=== PATIENT | female | born 1945 | race Caucasian/White ===

== ENCOUNTER 2017-11-25 19:53 | Emergency (ER) | payer OTHER ==
[~2017-11-25] VITALS: Ht 165.1 cm; Wt 104.3 kg
--- NOTE | ~2017-11-25 | EKG ---
[place] [address] [place] [address] ELECTROCARDIOGRAM REPORT Name: KINDRA OMALLEY [id number] Admission: 11/25/17 Attend Phys: Discharge: 11/25/17 Date of : 47 Report #: [id number] THIS REPORT FOR: //name// [facility] ED Test Date: 2017-11-25 Test Time: 20:10:23 Pat Name: KINDRA OMALLEY Department: Room: Gender: F Form Carpenter: [facility] : 1945 Requested By: Joni Acevedo Order Number: [id number] MD: Satish Farooq Measurements Intervals [place] Rate: 79 P: 35 FL: 128 QRS: 56 QRSD: 108 T: 7 QT: 389 QTc: 447 Interpretive Statements Sinus rhythm RSR' in V1 or V2, right VCD Compared to ECG 09/21/2000 16:31:51 RSR' in V1 or V2 now present Electronically Signed On 11-26-2017 14:58:01 CDT by Satish Farooq [email or web address] <ELECTRONICALLY SIGNED> By: Satish Farooq MD, [facility] 11/26/17 1458 09 09 Satish Farooq MD, FACC /EPI
[~2017-11-25 19:53] MED LIST: AMARYL4 MG PO; CLARITIN10 MG PO; EXCEDRIN CAPLE1 EACH PO; FLAGYL500 MG PO; HYDROCHLOROTH12.5 M2 PO; IBUPROFEN 200200 M1 PO; LOPID600 MG PO; LORAZEPAM 1 MG T1 M1 PO; PANTOPRAZOLE SO40 MG PO; PEPCID40 MG PO; POTASSIUM20 PO; PREDNISONE 20 M20 MG PO; SERTRALINE HCL100 MG PO; VISTARIL 25 MG25 M1 PO; ZESTORETIC 20-1 EAC3; ZOFRAN ODT8 MG SUBLING
[2017-11-25 20:56] LABS: ABSOLUTE NEUTROPHILS 5.6 thou/uL (1.4-8.2); BASOPHILS 1.1 % (0.0-2.0); EOSINOPHILS 2.9 % (0.0-3.0); HEMATOCRIT 39.4 % (37.0-47.0); HEMOGLOBIN 13.2 gm/dL (12.0-15.0); LYMPHOCYTES 20.9 % (24.0-44.0); MCHC 33.6 g/dL (28.0-37.0); MCV 80.4 fL (80.0-100.0); MONOCYTES 5.6 % (1.0-8.0); PLATELET COUNT 196 thou/uL (150-400); POLYS 69.5 % (36.0-66.0); RDW 14.4 % (10.5-14.5); WBC 8.1 thou/uL (4.0-11.0)
[2017-11-25] MEDS ORDERED: HUMULIN N100 UNIT/3 SUBQ (20:58)
[2017-11-25 21:05] LABS: CALCIUM 9.7 mg/dL (8.5-10.1); CREATININE 1.2 mg/dL (0.6-1.0); POTASSIUM 3.4 mmol/L (3.5-5.1)
[2017-11-25 22:13] VITALS: BP 164/66
[2017-11-25] MEDS ORDERED: DOXYCYCLINE 10100 MG PO (22:17)
== END 2017-11-25 22:30 | disposition home or self-care (01) ==
LOC: ER 19:53
PROVIDERS: Emergency Medicine
DX: J98.9 Respiratory disorder, unspecified (principal); I10 Essential (primary) hypertension; K21.9 Gastro-esophageal reflux disease without esophagitis; F41.9 Anxiety disorder, unspecified; F32.9 Major depressive disorder, single episode, unspecified; E11.9 Type 2 diabetes mellitus without complications; Z90.710 Acquired absence of both cervix and uterus; Z90.49 Acquired absence of other specified parts of digestive tract; Z88.1 Allergy status to other antibiotic agents; Z88.8 Allergy status to other drugs, medicaments and biological substances; Z87.891 Personal history of nicotine dependence

== ENCOUNTER → 2018-10-29 | Outpatient (CLI) | payer OTHER ==
[~2018-10-29] VITALS: Ht 165.1 cm; Wt 103.0 kg
[~2018-10-29] MED LIST changes: +COMBIVENT INH; +DOXYCYCLINE 10100 MG PO; +HUMULIN N100 UNIT/3 SUBQ; +HYDROCHLOROTH12.5 M1 PO; +TYLENOL PM EX-1 EACH PO
--- NOTE | ~2018-10-29 | P ---
[facility] [place] [address] PROCEDURE REPORT Name: KINDRA OMALLEY Room #: REG [facility]#: [id number] Admission: 10/29/18 ������������������ Attend Phys: Lars Pressley MD Discharge: ������������������ Date of : 47 Report #: [id number] THIS REPORT FOR: //name// CC: Jay Pressley DATE OF SERVICE: 10/29/2018 BRIEF HISTORY: The patient is a 73-year-old woman with history of colon polyps. PREOPERATIVE DIAGNOSIS: History of colon polyps. POSTOPERATIVE DIAGNOSES: 1. Colon polyps. 2. Moderate sigmoid diverticulosis coli. SPECIMENS: 1. A 10-12 mm flat polyp, 70 cm. 2. A 4 mm sessile polyp, rectum. MEDICATIONS: Deep sedation with propofol per Anesthesia. ESTIMATED BLOOD LOSS: 3 mL. PROCEDURE: Colonoscopy to cecum and terminal ileum with snare polypectomy and biopsy. FINDINGS: Prior to propofol sedation, procedure of colonoscopy discussed with the patient as well as potential risks and its complications. She indicates she understands and desires to proceed. DESCRIPTION OF PROCEDURE: The patient placed in left lateral decubitus position, digital examination was completed, which revealed no abnormalities. Subsequently, the Olympus video colonoscope was introduced in the rectum, advanced under direct vision to the cecum. Done with minimal difficulty. The cecum was identified by the ileocecal valve and the appendiceal orifice. I was able to visualize the distal segment of terminal ileum, which was inspected and noted to be unremarkable. At that point, scope was slowly withdrawn and careful circumferential views obtained including retroflexing the scope in the ascending colon. Upon slow withdrawal of the scope, the prep was good. The mucosa was within normal limits, normal vascular pattern, normal light reflex. As we withdrew the scope, no abnormalities were noted until we reached the descending colon. At 70 cm, there was about a 10-12 mm polyp over the edge of the fold. It had a bulky appearance, but was essentially a flat polyp draped over a fold. This was removed by hot snare polypectomy. The scope was further withdrawn and [facility] [address] [place] [address] PROCEDURE REPORT Name: KINDRA OMALLEY Room #: REG SUSHILA Garcia.#: [id number] Admission: 10/29/18 ������������������ Attend Phys: Lars Pressley MD Discharge: ������������������ Date of : 47 Report #: [id number] she was noted to have moderately severe diverticular disease in the sigmoid colon without endoscopic evidence of diverticulitis. No additional abnormalities were noted until the rectum was reached. In the distal rectum, a 4 mm sessile polyp was seen and removed with cold biopsy forceps. Scope was further withdrawn and no additional abnormalities were seen. Upon retroflexion, no abnormalities were seen. Scope was withdrawn. The patient tolerated the procedure well. CONDITION OF THE PATIENT UPON DISCHARGE: Following the procedure, the patient was drowsy, arousable and conversant and will be discharged to home when fully ambulatory. INSTRUCTIONS TO THE PATIENT AND FAMILY AT THE TIME OF DISCHARGE: We will follow up on the pathology. However, due to the relatively large polyp at 70 cm, we will have her return for followup colonoscopy in 3 years. Suggest high fiber diet. Last colonoscopy was more than 5 years ago. Withdrawal time from the cecum was 18 minutes and 3 seconds. ��������������������������������������������� ���������������������������������������� By: ��������������������������������������������� 1004 1241 Lars Pressley MD /nt
--- NOTE | 2018-10-30 17:06 | PATH ---
[facility] [place] [address] [place] [address] PATHOLOGY RPT PROCEDURE Name: KINDRA SCHMITT Room #: REG SUSHILA Garcia.#: [id number] ������������������ Admission: 10/29/18 ������������������ Date of : 47 Discharge: Report #: [id number] Path Case #: [id number] [facility] Accession Number: [id number] . 01 Material submitted: . PART A: POLYP AT 70CM PART B: BX OF POLYP AT RECTUM . 01 Clinical history: . Pre-OP DX: Screening Post-OP DX: Colon polyp, diverticulosis, rectal polyp . 02 Diagnosis: A. Polyp, at 70 cm, endoscopic biopsy: - Hyperplastic polyp. - Negative for dysplasia. . B. Polyp, at rectum, endoscopic biopsy: - Hyperplastic polyp. - Negative for dysplasia. . (IUV:patricia; 10/30/2018) MBR/10/30/2018 . 02 Electronically signed: . Mari Bradley MD, Pathologist NPI- [id number] . 01 Gross description: . A. Received in formalin labeled "Kindra Schmitt, polyp at 70 cm," is a 1.8 x 0.5 x 0.5 cm polypoid piece of suarez soft tissue. The margin is inked and the specimen is sectioned perpendicular to the margin and entirely submitted in cassette A1 and A2. . B. Received in formalin labeled "Kindra Schmitt, BX of polyp at rectum," are 2 segments of suarez soft tissue measuring 0.7 x 0.3 x 0.2 cm in aggregate dimensions and ranging from 0.3 to 0.4 cm in maximum dimension. The specimen is submitted entirely in cassette B1. (TSD; 10/29/2018) TOB/TOB . 02 Pathologist provided ICD-10: K63.5, K62.1 . 02 CPT . 007329, 213761 Specimen Comment: A courtesy [place] [address] PATHOLOGY RPT PROCEDURE Name: KINDRA SCHMITT Room #: REG [facility]#: [id number] ������������������ Admission: 10/29/18 ������������������ Date of : 47 Discharge: Report #: [id number] Path Case #: [id number] Specimen Comment: [phone], . Specimen Comment: Report sent to / DR LOYD Performed at: [address], [place], [place] [id number] MD Marquise Knight MD Phone: [phone] Performed at: [address] [id number] MD Mari Bradley MD Phone: [phone]
== END | disposition home or self-care (01) ==
LOC: GI 07:39
DX: Z12.11 Encounter for screening for malignant neoplasm of colon (principal); K63.5 Polyp of colon; K62.1 Rectal polyp; K57.30 Diverticulosis of large intestine without perforation or abscess without bleeding; F41.9 Anxiety disorder, unspecified; F32.9 Major depressive disorder, single episode, unspecified; J43.9 Emphysema, unspecified; I10 Essential (primary) hypertension; E78.5 Hyperlipidemia, unspecified; K21.9 Gastro-esophageal reflux disease without esophagitis; E11.9 Type 2 diabetes mellitus without complications; Z86.010 Personal history of colon polyps; Z88.2 Allergy status to sulfonamides; Z88.8 Allergy status to other drugs, medicaments and biological substances; Z79.899 Other long term (current) drug therapy; Z79.4 Long term (current) use of insulin; Z87.891 Personal history of nicotine dependence; Z90.710 Acquired absence of both cervix and uterus; Z90.49 Acquired absence of other specified parts of digestive tract; Z98.890 Other specified postprocedural states
CPT/HCPCS: 62110; 62900

== ENCOUNTER 2020-02-03 22:24 | Emergency (ER) | payer OTHER ==
[~2020-02-03] VITALS: Ht 152.4 cm; Wt 113.4 kg
[2020-02-03] MEDS ORDERED: HUMULIN 70100 UNIT/3 (23:05)
[2020-02-03] MEDS ORDERED: NEURONTIN100 MG PO (23:07)
[2020-02-04] MEDS ORDERED: NORCO 5-325 TA1 EAC1 PO (01:16)
[2020-02-04 01:47] VITALS: BP 156/74
== END 2020-02-04 01:50 | disposition home or self-care (01) ==
LOC: ER 22:24
DX: S29.011A Strain of muscle and tendon of front wall of thorax, initial encounter (principal); I10 Essential (primary) hypertension; K21.9 Gastro-esophageal reflux disease without esophagitis; E11.9 Type 2 diabetes mellitus without complications; J44.9 Chronic obstructive pulmonary disease, unspecified; Z79.899 Other long term (current) drug therapy; Z88.0 Allergy status to penicillin; Z88.1 Allergy status to other antibiotic agents; Z88.8 Allergy status to other drugs, medicaments and biological substances; Z88.2 Allergy status to sulfonamides; Z87.891 Personal history of nicotine dependence; Z90.49 Acquired absence of other specified parts of digestive tract; Z90.89 Acquired absence of other organs; W18.39XA Other fall on same level, initial encounter; Y93.89 Activity, other specified; Y92.89 Other specified places as the place of occurrence of the external cause; Y99.8 Other external cause status

== ENCOUNTER 2020-06-05 12:35 | Emergency (ER) | payer OTHER ==
[~2020-06-05] VITALS: Ht 165.1 cm; Wt 108.9 kg
[~2020-06-05 12:35] MED LIST changes: +HUMULIN 70100 UNIT/3; +NEURONTIN100 MG PO; +NORCO 5-325 TA1 EAC1 PO
[2020-06-05 15:00] LABS: HEMATOCRIT 40.5 % (37.0-47.0); HEMOGLOBIN 13.5 gm/dL (12.0-15.0); MCH 26.7 pg (26.0-34.0); MCHC 33.5 g/dL (28.0-37.0); MCV 79.9 fL (80.0-100.0); RBC 5.06 mil/uL (4.20-5.00); RDW 15.5 % (10.5-14.5)
[2020-06-05 15:04] LABS: ANION GAP 11 mmol/L (7-16); BUN 24 mg/dL (7-18); CALCIUM 9.2 mg/dL (8.5-10.1); CHLORIDE 101 mmol/L (98-107); CO2 27 mmol/L (21-32); CREATININE 0.9 mg/dL (0.6-1.0); GLUCOSE 242 mg/dL (74-106); POTASSIUM 4.7 mmol/L (3.5-5.1); SODIUM 139 mmol/L (136-145)
[2020-06-05 15:13] LABS: TROPONIN-I <0.06 ng/mL (<0.06)
[2020-06-05] MEDS ORDERED: MECLIZINE HCL25 M1 PO (16:56)
[2020-06-05 16:58] VITALS: BP 138/66
--- NOTE | 2020-06-06 07:41 | EKG ---
[facility] [place] [address] ELECTROCARDIOGRAM REPORT Name: KINDRA OMALLEY Room #: DEP [facility]#: [id number] Admission: 06/05/20 Attend Phys: Discharge: 06/05/20 Date of : 47 Report #: [id number] THIS REPORT FOR: cc: Jay Schulz MD, Brian G. MD Santiago, Patrick MD [facility] ~ THIS REPORT FOR: //name// [facility] ED Test Date: 2020-06-05 Test Time: 14:23:39 Pat Name: KINDRA OMALLEY Department: Room: Gender: F Trashman: ADELINE LICHA : 1945 Requested By: Santosh Parks Order Number: [id number] MD: Ponce Arabmula Measurements Intervals [place] Rate: 78 P: 41 SC: 144 QRS: 50 QRSD: 98 T: 32 QT: 388 QTc: 442 Interpretive Statements Sinus rhythm Baseline wander in lead(s) V6 Compared to ECG 11/25/2017 20:10:23 No significant changes Electronically Signed On 06-06-2020 7:41:05 CDT by Ponce Arambula [email or web address] <ELECTRONICALLY SIGNED> By: Ponce Arambula MD, FAC 06/06/20 0741 1423 1423 Ponce Arambula MD, [facility] /EPI
--- NOTE | 2020-06-06 12:45 | EKG ---
[facility] [place] [address] ELECTROCARDIOGRAM REPORT Name: KINDRA OMALLEY Room #: DEP [facility]#: [id number] Admission: 06/05/20 Attend Phys: Discharge: 06/05/20 Date of : 47 Report #: [id number] THIS REPORT FOR: cc: Jay Schulz MD, Brian G. MD Lundgren,Satish Bell MD [facility] ~ THIS REPORT FOR: //name// [facility] ED Test Date: 2020-06-05 Test Time: 12:53:13 Pat Name: KINDRA OMALLEY Department: Room: Gender: F Monitoring And Evaluation Advisor: [facility] : 1945 Requested By: Santosh Parks Order Number: [id number] MD: Satish Farooq Measurements Intervals [place] Rate: 83 P: 63 [place]: 136 QRS: 48 QRSD: 95 T: 32 QT: 382 QTc: 449 Interpretive Statements Sinus rhythm Probable left atrial enlargement Baseline wander in lead(s) I,II,aVR Compared to ECG 11/25/2017 20:10:23 No significant changes Electronically Signed On 06-06-2020 12:44:44 CDT by Satish Farooq [email or web address] <ELECTRONICALLY SIGNED> By: Satish Farooq MD, [facility] 06/06/20 1244 1253 1253 Satish Farooq MD, [facility] /EPI
== END 2020-06-05 16:58 | disposition home or self-care (01) ==
LOC: ER 12:35
PROVIDERS: Emergency Medicine
DX: R42 Dizziness and giddiness (principal); I10 Essential (primary) hypertension; E11.9 Type 2 diabetes mellitus without complications; K21.9 Gastro-esophageal reflux disease without esophagitis; E78.5 Hyperlipidemia, unspecified; J44.9 Chronic obstructive pulmonary disease, unspecified; Z90.710 Acquired absence of both cervix and uterus; Z90.89 Acquired absence of other organs; Z90.49 Acquired absence of other specified parts of digestive tract; Z87.891 Personal history of nicotine dependence; Z79.4 Long term (current) use of insulin; Z79.899 Other long term (current) drug therapy; Z88.1 Allergy status to other antibiotic agents; Z88.2 Allergy status to sulfonamides; Z88.8 Allergy status to other drugs, medicaments and biological substances

== ENCOUNTER 2021-06-02 07:29 | Inpatient (IN) | payer OTHER ==
[~2021-06-02] VITALS: Ht 165.1 cm; Wt 117.9 kg
--- NOTE | ~2021-06-02 | EMS ---
[address] [address] EMS Patient Care Report Name: KINDRA OMALLEY Room #: REG [facility] Elliott#: [id number] Admission: 06/02/21 Attend Phys: Discharge: Date of : 47 Report #: [id number] THIS REPORT FOR: //name// Report Transmitted: 06/02/2021 07:37 EMS Care Summary [facility] MED-ACT Incident [id number] @ 06/02/2021 06:51 Incident Location [address] [place] [address] Patient KINDRA OMALLEY Female, 76 Years 1945 Patient Address [address] [place] [address] Patient History Chronic Obstructive Pulmonary Disease (COPD),Diabetes,Hypertension (HTN), Patient Allergies Other drug allergy, Chief Complaint right sided rib pain Disposition Transported No Lights/[place] Dispatch Reason Falls Transported To [facility] Narrative Arrived to find pt lying on her right side alert and oriented. Pt fell about 2 feet into a area covered with river rock. Pt landed on her right side. Pt complained of right rib, shoulder, arm, and head pain. Pt had a hematoma forming on the right sided of her head, and skin tear on right elbow. Pt also complained of pain with inspiration on the right side of ribs that made it difficult to get a deep breath. Pt denied loss of consciousness and neck or [address] [address] EMS Patient Care Report Name: KINDRA OMALLEY Room #: REG [facility]#: [id number] Admission: 06/02/21 Attend Phys: Discharge: Date of : 47 Report #: [id number] back pain. Pt was lifted to the cot with a blanket and place in the position of comfort. Pt was administered Fentanyl for pain management. En route to [facility] pt stated her pain was decreased. Upon arrival pt was taken to 3 and care transferred to social staff worker with report. Initial Vitals @07:15P: 73,SpO2: 78, @PTAP: 112,R: 18,BP: 182/98,Pain: 10/10,GCS: 15,SpO2: 74,Revised Trauma: 12, @07:09P: 76,R: 24,BP: 195/80,GCS: 15,Temp: 97.6F,Glucose: 123,SpO2: 94,Revised Trauma: 12, Impression Injury of Thorax (Upper Chest) Procedures @07:05Saline Lock 10cc (20 ga) Site: Antecubital-RightResponse: UnchangedSucceeded@07:08Fentanyl - 100 Micrograms (mcg) - Intravenous (IV)Response: Unchanged@07:05Oxygen FlowRate: 4 Device: Nasal Cannula (NC) Response: ImprovedSucceeded@PTAOxygen FlowRate: 15 Device: Non Re-breather Mask (NRB) Response: UnchangedSucceeded Timeline SENIOR PROJECT CONTROLS SPECIALIST,Oxygen FlowRate: 15 Device: Non Re-breather Mask (NRB) Response: UnchangedSucceeded, SENIOR PROJECT CONTROLS SPECIALIST,BP: 182/98 M,PULSE: 112,RR: 18 R,SPO2: 74 Ox,ETCO2: ,BG: ,PAIN: 10,GCS: 15, 06:49,Call Received 06:49,Psap Call 06:51,Dispatched 06:53,En Route 06:59,On Scene 07:01,At Patient 07:05,Saline Lock 10cc 20 ga Site: Antecubital-Right,Response: UnchangedSucceeded, 07:05,Oxygen FlowRate: 4 Device: Nasal Cannula (NC) Response: ImprovedSucceeded, 07:08,Fentanyl - 100 Micrograms (mcg) - Intravenous (IV),Response: Unchanged 07:09,BP: 195/80 M,PULSE: 76,RR: 24 R,SPO2: 94 Ox,ETCO2: ,B,PAIN: ,GCS: 15, 07:15,BP: / M,PULSE: 73,RR: R,SPO2: 78 Ox,ETCO2: ,BG: ,PAIN: ,GCS: , 07:16,Depart Scene 07:20,At Destination 07:49,Call Closed Disclaimer v1.1 Copyright 2020 [email or web address] This EMS Care Summary contains data elements from the applicable legal record [facility] [address] [place] [address] EMS Patient Care Report Name: KINDRA OMALLEY Destiny Room #: REG [facility]GET[facility] Elliott#: [id number] Admission: 06/02/21 Attend Phys: Discharge: Date of : 47 Report #: [id number] (which may be displayed differently). It is designed to provide pertinent information for the following purposes: continuity of care, clinical quality, and state data reporting. The complete legal record is available to ED staff and administrators of the receiving hospital in [facility]'s Patient Tracker. All data is provided "as is."
[~2021-06-02 07:29] MED LIST changes: +MECLIZINE HCL25 M1 PO
[2021-06-02 07:30] VITALS: BP 159/77
[2021-06-02 08:55] LABS: ABSOLUTE NEUTROPHILS 6.8 thou/uL (1.4-8.2); BASOPHILS 0.9 % (0.0-2.0); EOSINOPHILS 1.5 % (0.0-3.0); HEMATOCRIT 38.8 % (37.0-47.0); HEMOGLOBIN 12.6 gm/dL (12.0-15.0); LYMPHOCYTES 12.3 % (24.0-44.0); MCH 26.4 pg (26.0-34.0); MCHC 32.5 g/dL (28.0-37.0); MCV 81.4 fL (80.0-100.0); MONOCYTES 5.8 % (1.0-8.0); PLATELET COUNT 124 thou/uL (150-400); POLYS 79.5 % (36.0-66.0); RBC 4.76 mil/uL (4.20-5.00); RDW 15.9 % (10.5-14.5); WBC 8.5 thou/uL (4.0-11.0)
[2021-06-02 09:04] LABS: CALCIUM 8.5 mg/dL (8.5-10.1); CREATININE 1.4 mg/dL (0.6-1.0); POTASSIUM 4.1 mmol/L (3.5-5.1)
[2021-06-02] MEDS ORDERED: MELOXICAM10 MG PO (16:35)
[2021-06-02] MEDS ORDERED: GEMFIBROZIL 60600 MG PO (16:36)
[2021-06-02] MEDS ORDERED: UNIFINE PENTIP EAC SUBQ (16:37)
[2021-06-02] MEDS ORDERED: TRELEGY ELLIPT1 EAC1 INH (16:37)
[2021-06-02 19:01] VITALS: BP 153/87
[2021-06-02 20:00] VITALS: BP 153/87
[2021-06-03 03:17] VITALS: BP 149/60
[2021-06-03 06:46] LABS: CALCIUM 8.5 mg/dL (8.5-10.1); CREATININE 1.4 mg/dL (0.6-1.0)
--- NOTE | 2021-06-03 06:47 | NUR ---
ASSUMED CARE OF PT FROM ED AT 1900HRS. PT IS AOX4 AND LETS NEEDS BE KNOWN. FALL PRECAUTION IN PLACE. PT WAS ORIENTED TO THE UNIT AND HER ROOM. PT WAS ABLE TO ANSWER ALL ADMISSION RELATED QUESTIONS. PT REPORTED SOME RIB PAIN; PRN PAIN MEDS PROVIDED. ASSESSMENT CHARTED. PT HAD POST VOID RESIDUAL OF 1104ML. OT STRAIGHT CATH PERFORMED PER ORDER. PT HAD 1 EMESIS EPISODE THIS SHIFT. VSS AND NO S/S OF ACUTE DISTRESS. WILL CONTINUE TO MONITOR.
[2021-06-03 06:53] LABS: POTASSIUM 5.3 mmol/L (3.5-5.1)
[2021-06-03 07:41] VITALS: BP 170/71
--- NOTE | 2021-06-03 16:28 | NUR ---
ASSUMED PT CARE AROUND 0700. PT ALERT XORIENTED X 4. ON 3L/O2/NC. IV LEFT FA/NS/80MLS/HR. PAIN PARTIALLY CONTROLLED BY PAIN MEDICINE. BRUISE AND SKIN LACERATION ONRT FOREHEAD DUE TO FALL. TRIED BEDSIDE COMMODE AROUND 11 IN THE MORNING, BLADDER SCANNED AROUND 12 WITH 350 MLS OF URINE, RN NOTIFIED DR. TEAGUE. DR SAID TO TRY BEDSIDE COMMODE LATER AND IF NOT WORKED, BLADDER SCAN AND LET HER KNOW. FAMILY IN THE ROOM. FALL PRECT IN PLACE. CALL LIGHT IN REACH. WILL CALL APPROPRIATELY. WILL CONT TO MONITOR.
[2021-06-03 19:07] VITALS: BP 168/74
[2021-06-03 19:26] VITALS: BP 168/74
--- NOTE | 2021-06-04 00:53 | NUR ---
UPON SHIFT REPORT, PT RETAINING URINE, STRAIGHT CATHERIZED WITH 600ML OUTPUT. AFTER BEDSIDE PROCEDURE, PT REPORTS SOB WHILE LYING FLAT AND MAINTAINING 2.5L O2 VIA NC. HEAD OF BED ELEVATED, O2 TITRATED UP TO 4L WHEN PT REPORTING RELIEF. AFTER PT NOTED TO RECOVER, O2 TITRATED BACK DOWN TO 2.5L WITHOUT PT DESATURATION. UPON SHIFT ASSESSMENT, PT AOX4. PT REPORTS 6/10 PAIN IN RIBS, BACK, AND SHOULDERS. PT RECEIVING PRN IV MORPHINE Q4HR. PT REPORTS SOB INTERMITTENTLY AT REST AND WITH EXERTION. PT TOLERATING PO INTAKE OF FLUIDS AND REGULAR DIET WITHOUT ISSUE. PT WITHOUT NAUSEA OR EMESIS. PT WITHOUT VOID, CONTINUES TO RETAIN URINE. PT RESTING IN BED THROUGHOUT SHIFT, FREQUENT REPOSITIONING ENCOURAGED, PT NOTED TO SHIFT SLIGHTLY ON HER OWN, REFUSING REPOSITIONING ASSISTANCE. SENSATION INTACT, CAPILLARY REFILL LESS THAN 3SEC, PERIPHERAL PULSES PALPABLE IN ALL EXTREMITIES. PT NOTIFIED STAFF EXPRESSINIG DIFFICULTY BREATHING, O2 TITRATED FROM 2.5L TO 4L, HEAD OF BED ELEVATED, O2 SATURATION ASSESSED 91-92%, LUNG SOUNDS REMAIN DIMINISHED, IV FLUIDS PAUSED. ONCALL CERAMICS TEACHER NOTIFIED, RECEIVED ORDERS TO CONTINUE HOLDING IV FLUIDS, OBTAIN STAT CXR FOR HYPOXIA, SOB AND RULE OUT OF PNEUMOTHORAX, CHF, AND PNEUMONIA. PT ENCOURAGED TO NOTIFY STAFF FOR ALL NEEDS, CALL LIGHT WITHIN REACH, BED ALARM ON, BED LOCKED IN LOWEST POSITION, FREQUENT MONITORING WILL CONTINUE.
[2021-06-04 07:25] VITALS: BP 180/82
--- NOTE | 2021-06-04 07:39 | NUR ---
BLADDER SCAN 620, STRAIGHT CATH PT OUTPUT 628CC PT TOLARATED TX WELL, DID NOT VOICE ANY PAIN BUT DISCOMFORT. STERILE TECHNIQUE MAINTAINED. WILL CONTINUE TO MONITOR PT.
[2021-06-04 07:47] VITALS: BP 167/62
[2021-06-04 11:50] VITALS: BP 154/78
[2021-06-04 13:03] LABS: CALCIUM 8.4 mg/dL (8.5-10.1); CREATININE 1.3 mg/dL (0.6-1.0); POTASSIUM 3.9 mmol/L (3.5-5.1)
[2021-06-04 15:30] VITALS: BP 193/79
--- NOTE | 2021-06-04 16:24 | NUR ---
PT ADMITTED RELATED TO FALL FX; WEAKNESS; SOA. CM REVIEWED CHART AND SPOKE WITH CARE TEAM. CM MET WITH PT AND SISTER NIMISHA AT BEDSIDE THIS DAY. PT APPEARED TO BE A&O X4. CM ROLE INTRODUCED. PT INDICATED SHE RESIDES IN A HOUSE WITH HER SISTER. SHE INDICATED 3 STEPS TO ENTER AND A FULL FLIGHT INSIDE. PT INDICATED SHE HAS A QUAD CANE FOR USE AT HOME. 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 PT INDICATED NO HH OR SNF HX. PT INDICATED SHE HAD FLU SHOT 05/17/21 AND IS FULLY VACINATED. CARE TEAM RECOMMENDING SKILLED POST ACUTE CARE STAY. CM PROVIDED [facility] LIST FOR REVIEW. NEEDING TO CONTROL PAIN TO OPTIMIZE PARTICIPATION WITH THERAPY. CM FOLLOWING REGARDING DC PLANNING.
[2021-06-04 19:37] VITALS: BP 154/58
--- NOTE | 2021-06-05 04:15 | NUR ---
Pt. rested quietly during the night when checked on during frequent rounds. She offers no complaints of pain or discomfort. Bed alarm is on.
[2021-06-05 07:59] LABS: HEMATOCRIT 33.3 % (37.0-47.0); HEMOGLOBIN 10.7 gm/dL (12.0-15.0); MCHC 32.1 g/dL (28.0-37.0); MCV 81.2 fL (80.0-100.0); RBC 4.1 mil/uL (4.20-5.00); RDW 16.5 % (10.5-14.5); WBC 7.9 thou/uL (4.0-11.0)
[2021-06-05 08:00] VITALS: BP 169/63
--- NOTE | 2021-06-05 14:16 | NUR ---
Nutrition: pt see due to high BMI 43, extreme class 3 obesity. Admit with fall from ground level, multiple rib fractures and ortho consult for right clavicle fx. PMH: IDDM COPD HLD, HTN. Visited with pt and family member. Pt with difficulty eating some foods, prefers softer diet. Noted c/o dysphagia and has been evaled by ST with swallowing issues deemed to be idiopathic or psychosomatic. Desires mech chopped diet. Current intake 20-50%. Educated on ordering meals and what items are available in [employer]. Needs assist with meal set up due to limited mobility/fractures. Reports weight gain over time of COVID. RD available if weight loss education desired. Place as low risk but follow for improved intakes.
[2021-06-05 16:00] VITALS: BP 160/56
--- NOTE | 2021-06-05 17:19 | NUR ---
assumed care of pt at 0700. pt alert and oriented to self and situation. pleasant. pain controlled wtih med regimen. ortho consulted. no plans for surgical intervention. sling ordered for comfort. weight bearing as tolerating. range of motion as tolerated. family at bedside, updated on plan of care. uneventful on telemetry. requiring 4L NC. wcm.
[2021-06-05 19:07] VITALS: BP 171/74
--- NOTE | 2021-06-06 02:30 | NUR ---
PROGRESS PT A/O X3 OCCASIONALLY FORGETFUL. RATING PAIN TO RIGHT SHOULDER, RIGHT FLANK, AND CLAVICLE A 5 TO 8 TOOK HYDROCODONE X 2 WITH EFFECT PT SLEPT AFTER. UP WITH 2, GAIT BELT, AND OXYGEN TO BSC. TRIED TO HAVE A BM BUT ONLY PASSED GAS. RIGHT EYE BRUISED AND SWOLLEN, DECLINED ICE PACK OR WARM PACK. ON 4 LITERS O2 VIA NC SATS IN LOW 90'S. LUNGS DIMINISHED DENIES SOB. TELEMETRY INTACT READING SB WITH RATES IN THE 60'S. ACCUCHECKS AND SSI CONTINUE. PT TO START PT/OT IN THE AM. SCHERER CATHETER IN PLACE DRAINING ADEQUATE AMOUNT OF URINE.
[2021-06-06 05:16] LABS: HEMOGLOBIN 11.3 gm/dL (12.0-15.0); MCH 27.3 pg (26.0-34.0); MCHC 34.1 g/dL (28.0-37.0); MCV 80.2 fL (80.0-100.0); RBC 4.12 mil/uL (4.20-5.00); RDW 16.2 % (10.5-14.5); WBC 8.8 thou/uL (4.0-11.0)
[2021-06-06 05:33] LABS: ALBUMIN 3.1 g/dL (3.4-5.0); CREATININE 1.2 mg/dL (0.6-1.0); MAGNESIUM 2.2 mg/dL (1.8-2.4); PHOSPHORUS 4.7 mg/dL (2.5-4.9)
[2021-06-06 08:00] VITALS: BP 150/53
--- NOTE | 2021-06-06 10:47 | 2DMMODE ---
[facility] [place] [address] 2 D/M-MODE ECHOCARDIOGRAM Name: KINDRA OMALLEY Room #: 450-P ADM IN M.R.#: [id number] Admission: 06/02/21 Attend Phys: oJhn Asher, Discharge: Date of : 47 Report #: [id number] THIS REPORT FOR: cc: Jay Schulz MD, Brian G. MD Santiago, Patrick MD [facility] ~ APPROVED REPORT Study performed: 06/06/2021 09:09:30 EXAM: Comprehensive 2D, Doppler, and color-flow Echocardiogram Patient Location: Bedside Room #: 450 Status: routine BSA: 2.21 HR: 71 bpm BP: 171/74 mmHg Rhythm: NSR Other Information Study Quality: Adequate Technically limited study due to morbid obesity/unable to move/COPD. Indications Hypoxia. Question CHF. Hx: HTN, DM, COPD. 2D Dimensions RVDd: 36.80 mm IVSd: 11.11 (7-11mm) LVOT Diam: 20.61 (18-24mm) LVDd: 42.52 mm PWd: 10.80 (7-11mm) LVDs: 29.02 (25-40mm) Left Atrium: 38.93 (27-40mm) Aortic Root: 33.27 mm Volumes Left Atrial Volume (Systole) Single Plane 4CH: 41.63 mL Single Plane 2CH: 54.54 mL LA ESV Index: 23.00 mL/m2 Aortic Valve AoV Peak Isael.: 2.02 m/s [facility] [place] [address] 2 D/M-MODE ECHOCARDIOGRAM Name: KINDRA OMALLEY Room #: 450-P [facility] IN ..#: [id number] Admission: 06/02/21 Attend Phys: John Chavez Discharge: Date of : 47 Report #: [id number] AO Peak Gr.: 16.31 mmHg LVOT Max P.56 mmHg AO Mean Gr.: 7.85 mmHg AO V2 Mean: 1.31 m/s LVOT Max V: 1.07 m/s AO V2 VTI: 42.63 cm MARICRUZ Vmax: 1.76 cm2 Mitral Valve E/A Ratio: 0.7 MV Decel. Time: 298.36 ms MV E Max Isael.: 0.93 m/s MV A Isael.: 1.28 m/s MV PHT: 86.53 ms IVRT: 65.74 ms Pulmonary Valve PV Peak Isael.: 0.81 m/s PV Peak Gr.: 2.62 mmHg Tricuspid Valve TR Peak Isael.: 3.16 m/s RAP Estimate: 5.00 mmHg TR Peak Gr.: 40.00 mmHg PA Pressure: 45.00 mmHg Left Ventricle The left ventricle is normal size. There is normal LV segmental wall motion. There is normal left ventricular wall thickness. Left ventricular systolic function is normal. LVEF is 65%. Mild diastolic dysfunction is present (impaired relaxation pattern). Right Ventricle The right ventricle is normal size. The right ventricular systolic function is normal. Atria The left atrium size is normal. The right atrium size is normal. Aortic Valve Aortic valve is mild to moderately calcified. No aortic regurgitation is present. There is borderline mild aortic stenosis. Calculated aortic valve area is 1.8 cm2 with maximum pressure gradient of 16 mmHg and mean pressure gradient of 8 mmHg. Mitral Valve The mitral valve is normal in structure. Mild mitral annular calcification. Trace mitral regurgitation. No evidence of mitral valve stenosis. [facility] [address] [place] [address] 2 D/M-MODE ECHOCARDIOGRAM Name: KINDRA OMALLEY Destiny Room #: 450-[facility] IN ..#: [id number] Admission: 06/02/21 Attend Phys: John Chavez Discharge: Date of : 47 Report #: [id number] Tricuspid Valve The tricuspid valve is normal in structure. Mild tricuspid regurgitation. Estimated PAP is 45mmHg. Pulmonic Valve Pulmonic valve is not well visualized. Great Vessels The aortic root is normal in size. Ascending aorta is not well visualized. IVC is normal in size and collapses >50% with inspiration. Pericardium There is no pericardial effusion. <Conclusion> Technically a difficult study Normal left ventricular size/wall thickness Ejection fraction 60% Normal right ventricle size/function Normal atrial size Aortic valve mildly sclerotic Mild aortic valve stenosis aortic valve area estimated at 1.8 cm and mean gradient of 8 mmHg Mild mitral annular calcification Mild tricuspid valve insufficiency Pulmonary systolic pressure estimated 45 mmHg Normal aortic root size No pericardial effusion <ELECTRONICALLY SIGNED> By: Ponce Arambula MD, FACC 06/06/21 1047 1047 1047 Ponce Arambula MD, FACC /INF
--- NOTE | 2021-06-06 14:03 | NUR ---
PT'S SISTER SPOKE WITH ORTHO BREWING TECHNICIAN AND NOW THEY ARE INTERESTED IN POSSIBLE ADMISSION TO [facility] ACUTE REHAB HERE AT [facility]. [facility] CONSULTED. PT NEEDS TO WORK WITH THERAPIES TO DETERMINE IF SHE IS APPROPRIATE. CM FOLLOWING REGARDING DC PLANNING.
[2021-06-06 19:45] VITALS: BP 175/59
[2021-06-07 00:24] VITALS: BP 164/59
--- NOTE | 2021-06-07 04:37 | NUR ---
ASSUMED CARE OF PT AT SHIFT CHANGE. PT IS AOX4 AND LETS NEEDS BE KNOWN. FALL PRECAUTION IN PLACE. 4L O2 VIA NC CONTINUED AND UNABLE TO WEAN AT THIS TIME PT SATS AT 92% ON 4L. PT REPORTED SOME PAIN; PRNS PROVIDED. PT DENIED NAUSEA. PT WAS ABLE TO HAVE A BM THIS SHIFT. VSS AND NO S/S OF ACUTE DISTRESS. WILL CONTINIUE TO MONITOR FOR CHANGES.
[2021-06-07 06:18] LABS: CALCIUM 9.1 mg/dL (8.5-10.1); CREATININE 1.3 mg/dL (0.6-1.0); POTASSIUM 3.1 mmol/L (3.5-5.1)
[2021-06-07 08:27] VITALS: BP 127/69; BP 177/69
--- NOTE | 2021-06-07 12:25 | NUR ---
[facility] ASSESSED AND INDICATED THAT PT THEY ARE ABLE TO ACCEPT PT AND THAT THEY WILL SUBMIT FOR INSIRANCE AUTH. CM FOLLOWING REGARDING DC PLANNING.
--- NOTE | 2021-06-07 14:33 | NUR ---
PATIENT IS CANDIDATE FOR ACUTE REHAB STAY. AUTHORIZATION REQUESTED THIS DATE. WILL AWAIT INSURANCE RESPONSE.
[2021-06-07 15:30] VITALS: BP 144/51
--- NOTE | 2021-06-07 17:48 | NUR ---
Assumed pt care at 7am.Pt in bed most of the time today. Repositioned q2h for comfort.Assessment completed.vss.Pt in bed for all meals. Meds given as ordered and well tolerated.Later this afternoon, pt had cxray and report called to luz Smith noted. Vanco iv bolus given. Meropenem will be given after. Covid 19 swab done today in prep for dc to rehab. Pain med given for back and ribs pain, Will continue to monitor.
[2021-06-07 19:35] VITALS: BP 155/73
--- NOTE | 2021-06-08 06:18 | NUR ---
pain controlled this shift. patient gets soa with activities. patient had a bowel movement this shift.patient was able to use bedside commode with max assists. patient needs max. assist with adl, bed mobility, transfer and toileting. fall precaution in place. patient in bed asleep at this time breathing regular and unlaboured.
[2021-06-08 07:30] VITALS: BP 156/51
[2021-06-08 12:00] VITALS: BP 151/54
[2021-06-08 12:03] LABS: CALCIUM 9.3 mg/dL (8.5-10.1); POTASSIUM 3.8 mmol/L (3.5-5.1)
[2021-06-08 13:12] LABS: HEMATOCRIT 34.3 % (37.0-47.0); HEMOGLOBIN 10.9 gm/dL (12.0-15.0); MCH 26.1 pg (26.0-34.0); MCHC 31.9 g/dL (28.0-37.0); MCV 81.9 fL (80.0-100.0); RBC 4.19 mil/uL (4.20-5.00); RDW 15.7 % (10.5-14.5); WBC 6.6 thou/uL (4.0-11.0)
--- NOTE | 2021-06-08 14:00 | NUR ---
CARE TEAM INDICATED THAT PT DEVELOPED R PNEUMOTHORAX. PULM CONSULTED. 5N AHD SUBMITTED FOR INSURANCE AUTH YESTERDAY. CARE TEAM INDICATING THAT PT LIKELY WON'T BE DC READY OVER THE WEEKEND. CM PROVIDED UPDATE TO PT'S SISTER OVER PHONE SHE IS HOME WITH HER SON WHO IS HOME FROM OUR ICU. CM FOLLOWING REGARDING DC PLANNING.
[2021-06-08 16:00] VITALS: BP 145/50
--- NOTE | 2021-06-08 16:05 | NUR ---
Assumed pt care at 7am. Pt up in chair for meals. Assessment completed.vss. Pt assisted with am care and bath by occupation therapist.Meds given with meals and well tolerated.Pt sister called and updates given. Dr Conway and Manuel here,order noted.Pt still on 4liter of o2.No soa noted. Will continue to monitor.
[2021-06-08 20:00] VITALS: BP 123/52
[2021-06-09 00:46] VITALS: BP 177/60
--- NOTE | 2021-06-09 01:49 | NUR ---
patient right eye socket is blue and black.pain controlled this shift on the right ribs.patient is able to use bedside commode. patient needs max assist with adl, bed mobility, transfer and toileting. fall precaution in place. patient in bed asleep at this time breathing regular and unlaboured.
[2021-06-09 04:54] VITALS: BP 155/71
[2021-06-09 07:07] VITALS: BP 145/64
[2021-06-09 15:36] VITALS: BP 143/64
[2021-06-09 20:22] VITALS: BP 151/54
--- NOTE | 2021-06-10 04:10 | NUR ---
ASSUMED CARE AT 1900, PT SLEPT WELL, ASSISTED TO BED, REPORTED PAIN WITH MOVEMENT, PRN MEDICATION ADMINISTERED, TOLARATED MEDICATIONS WELL, NO ADVERSE REACTION NOTED, CATHETER PATENT DRAINING WELL, VOICES NO DISCOMFORT, WILL CONTINUE TO MONITOR.
[2021-06-10 04:57] VITALS: BP 156/59
[2021-06-10 07:21] VITALS: BP 149/53
--- NOTE | 2021-06-10 12:43 | NUR ---
ASSUMED PT CARE AROUND 0700. PT ALERT X ORIENTED X 4. ON 3L/O2/NC. 2 X PERSON ASST TO BEDSIDE COMMODE.IV LEFT FA/SL. SCHERER IN PLACE. ACCUCHECK X ACHS. BRUISES ON RT SIDE OF FOREHEAD AND ABOVE AND SIDES OF RT EYE. FALL PRECT IN PLACE. CALL LIGHT WITHIN REACH. WILL CALL APPROP. WILL CONT TO MONITOR.
[2021-06-10 15:31] VITALS: BP 147/62
[2021-06-10 19:26] VITALS: BP 152/62
--- NOTE | 2021-06-11 02:21 | NUR ---
ASSUMED PT CARE THIS PM. PT IS ALERT AND ORIENTED X4. PT HAS A SCHERER IN PLACE WHICH IS PATENT.PT IS ON 3L O2 VIA NC. PT DID NOT VERBALIZE ANY CONCERNS AND NO VISIBLE SIGN OF DISTRESS WAS NOTED. MEDS WERE GIVEN PER EMAR ORDERS. FALL PRECAUTIONS IN PLACE. WILL CONTINUE TO MONITOR.
--- NOTE | 2021-06-11 09:22 | NUR ---
INSURANCE CALLED OVER THE WEEKEND AND PATIENT HAS BEEN DENIED ACUTE REHAB STAY. PEER TO PEER CALL OFFERED. REHAB PHYSICIAN REVIEWED PATIENT'S INFORMATON AND DECLINING TO DO PEER TO PEER DUE TO PATIENT PROGRESSED MEDICALLY AND THERE IS NOT ENOUGH INFORMATION THAT WOULD OVERTURN INSURNANCE'S DECISION. [employer] INTERN INFORMED OF ABOVE.
[2021-06-11 09:44] VITALS: BP 150/55
--- NOTE | 2021-06-11 11:21 | NUR ---
INSURANCE DENIED AUTH FOR 5N OFFERED PEER TO PEER. HUNTER SPOKE WITH DR. GOEL THIS AM AND HE INDICATED THAT THEY DON'T HAVE CRITERIA TO [facility] FOR ACUTE REHAB NEEDS. THAT PT IS APPROPRIAT FOR SKILLED AT THIS POINT. CM CONVEYED THIS TO PT'S SISTER NIMISHA. CM EMAILED HER [facility] LIST FOR REVIEW. SHE IS REVIEWING. CM TO FAX REFERRALS ONCE FACILITIES ARE INDICATED. CM FOLLOWING REGARDING DC PLANNING.
[2021-06-11 19:46] VITALS: BP 150/78
[2021-06-12 01:14] VITALS: BP 152/55
--- NOTE | 2021-06-12 02:58 | NUR ---
ASSUMED PT CARE THIS PM. PT IS ALERT AND ORIENTED X4. PT DID NOT C/O OF SOB OR PAIN. PT HAS SCHERER IN PLACE WHICH IS PATENT. PT DID NOT VERBALIZE ANY CONCERNS. MEDS WERE GIVEN PER EMAR ORDERS. FALL PRECAUTIONS IN PLACE. WILL CONTINNE TO MONITOR.
[2021-06-12 07:27] VITALS: BP 164/41
--- NOTE | 2021-06-12 11:32 | NUR ---
Followup: appetite has not improved much, still eating average about 50% over past week. States nausea and asking for mint-guest going to bring in when visits. Encouraged to keep trying to eat something off trays, order own food choices and continue drinking water. BG are controlled. Low nutrition risk
--- NOTE | 2021-06-12 11:49 | NUR ---
[facility] DOESN'T HAVE BEDS. CAN'T ACCEPT. [facility] ([facility] To Media) DOESN'T HAVE A [facility] CONTRAT CURRENTLY. AWAITING RESPONSE FROM [facility].
--- NOTE | 2021-06-12 11:55 | NUR ---
ASSUMED PT CARE THIS AM. PT A&OX4, ABLE TO MAKE NEEDS KNOWN. PATIENT REPORTS MID BACK PAIN, LIDOCAINE PATCH APPLIED. PATIENT HAS A SCHERER CATHETER IN PLACE DRAINING WELL. PATIENT ON 1 LITER OF OXYGEN VIA NASAL CANNULA. PATIENT HAS BRUISING NOTED TO THE FACE. BLOOD SUGAR BEING MONITORED ORDERED. PATIENT ON TELE. MEDICATION TAKEN WITHOUT ISSUE. PATIENT HAD A BOWEL MOVEMENT THIS SHIFT. IV REMAINS PATENT, SALINE LOCKED. FALL PRECAUTIONS ARE IN PLACE, CALL LIGHT WITHIN REACH.
[2021-06-12 12:09] VITALS: BP 139/48
[2021-06-12] MEDS ORDERED: CEFDINIR300 MG PO (16:44)
[2021-06-12] MEDS ORDERED: NORCO5 PO (16:44)
[2021-06-12 19:28] VITALS: BP 149/62
[2021-06-12] MEDS ORDERED: STIMULANT LAXA1 EACH PO (21:40)
[2021-06-12] MEDS ORDERED: HUMULIN N100 UNIT/1 SUBQ ×2 (21:40)
[2021-06-12] MEDS ORDERED: METOPROLOL TART25 MG PO (21:40)
[2021-06-12] MEDS ORDERED: LASIX 40 MG TAB40 M1 PO (21:40)
[2021-06-12] MEDS ORDERED: LIDOPATCH1 EACH TRANSDERM (21:40)
[2021-06-12] MEDS ORDERED: KLOR-CON M2020 MEQ PO (21:40)
[2021-06-12] MEDS ORDERED: ARTHRITIS PAIN100 GM TOP (21:40)
--- NOTE | 2021-06-13 00:41 | NUR ---
Patient has been refusing Breathing tx. recommend changing to PRN
--- NOTE | 2021-06-13 04:12 | NUR ---
ASSUMED CARE OF PT AT 1900HRS. PT IS AOX4 AND LETS NEEDS BE KNOWN. FALL PRECAUTION IN PLACE. REPORTED SOME PAIN BUT DENIED NAUSEA OR SOA. O2 VIA NC CONTINUED. PT REFUSED SOME MEDS THIS SHIFT. PT WAS ABLE TO GET COMFORTABLE AND SLEEP PART OF THE SHIFT. VSS AND NO S/S OF ACUTE DISTRESS. PT TO DC IN THE AM.
[2021-06-13 06:08] LABS: CALCIUM 8.8 mg/dL (8.5-10.1); POTASSIUM 3.9 mmol/L (3.5-5.1)
[2021-06-13 07:38] VITALS: BP 151/52
--- NOTE | 2021-06-13 09:39 | NUR ---
PATIENT REFUSING ALL BREATHING TREATMENTS, STATES THAT THE TREATMENTS MAKE HER THROAT SORE, CAN WE CHANGE THERAPY TO PRN
[2021-06-13] MEDS ORDERED: FLOMAX0.4 MG PO (09:52)
[2021-06-13] MEDS ORDERED: K-DUR 20 MEQ T20 MEQ PO (09:52)
[2021-06-13 10:42] VITALS: BP 161/52
[2021-06-13] MEDS ORDERED: NORVASC5 MG PO (10:53)
--- NOTE | 2021-06-13 11:37 | NUR ---
ASSUMED CARE OF PT AT 0700. THROUGHOUT THE AM, PT HAD NO COMPLAINTS AND RESTED QUIETLY IN THE ROOM VSS. WORKED WITH THERAPY PRIOR TO TRANSFER TO AMBULATE TO BATHROOM AND SHOWER. NO NEED FOR OXYGEN, AMBULATES STAND BY ASSIST. ACCOMPANIED BY SISTER TO [facility] WITH TRANSPORTATION SERVICES. ALL ITEMS TAKEN WITH HER, UPDATED ON PLAN OF CARE AND MED EDUCATION PRIOR TO DC. CALLED REPORT AND ANSWERED QUESTIONS FOR RECEIVING RN
--- NOTE | 2021-06-13 13:39 | NUR ---
PT DISCHARGED TO [facility] THIS AM AT 11:00 VIA [facility]. PT AND SISTER WERE AWARE AND AGREEABLE. CHART COPY MADE AND ORDERS FAXED. NURSE CALLED REPORT. NO OTHER CM INTERVENTION INDICATED. CASE CLOSED.
--- NOTE | 2021-06-15 13:52 | HC ---
[facility] [place] [address] [place] [address] CONSULTATION Name: KINDRA OMALLEY Room #: 450-[facility] .R.#: [id number] Admission: 06/02/21 Attend Phys: John Asher, Discharge: 06/13/21 Date of : 47 Report #: [id number] THIS REPORT FOR: cc: Jay Schulz MD, Brian G. MD Smithson, David G. MD ~ DATE OF SERVICE: 06/06/2021 HISTORY OF PRESENT ILLNESS: The patient is a 76-year-old white female who was moving some boxes and fell off a porch onto her right side. She sustained multiple traumas with a right adrenal hematoma; right-sided multiple closed rib fractures; L1, L2 and L3 transverse process fractures; right clavicle fracture, and she also has urinary retention requiring clean intermittent catheterization 3 times per day. She was seen by Ortho and is allowed weightbearing as tolerated, right upper extremity with range of motion as tolerated and use of sling for comfort. No specific precautions are noted per the lumbar transverse process fractures. We are seeing her in rehabilitation medicine consultation. PAST MEDICAL HISTORY: Includes insulin-dependent diabetes mellitus, GERD, COPD. MEDICATIONS: Please see the full medication listing. ALLERGIES: SHE HAS MULTIPLE ALLERGIES ARE LISTED. SOCIAL HISTORY: Lives with her sister in a house, 3 steps in. Premorbid quad cane ambulator. Sister is retired and cares for the patient's nephew who is apparently in a coma. REVIEW OF SYSTEMS: Did not offer any current complaints of chest pain, shortness of breath or abdominal discomfort. PHYSICAL EXAMINATION: GENERAL: A 76-year-old white female in no obvious distress. VITAL SIGNS: Temperature 36.9, pulse 69, respirations 16, blood pressure 150/53. NEUROLOGIC: She is alert. She is pleasant. She does have some right periorbital facial ecchymosis post the fall. Tends to favor using that right upper extremity as expected post the clavicular fracture. She could abduct it to about 90 degrees and forward flex it to about 90 degrees. Appears to have reasonable range of motion and strength of the elbow, wrist and hands. Left upper extremity revealed functional range of motion without obvious focal weakness. She is overweight. She is hesitant as far as moving her lower extremities, but I would grade her at probably a 3+/5 to 4-/5 secondary to discomfort. She could dorsiflex and plantarflex her ankles. There is no focal calf swelling. Tone appeared to be intact. [address] [address] CONSULTATION Name: KINDRA OMALLEY Room #: [facility]#: [id number] Admission: 06/02/21 Attend Phys: John Asher, Discharge: 06/13/21 Date of : 47 Report #: [id number] ASSESSMENT: A 76-year-old white female with the following problem list: 1. Multiple traumas post-fall off her porch. 2. Left lumbar transverse process fractures; L1, L2 and L3. 3. Right clavicular fracture. 4. Right-sided multiple closed rib fractures. 5. Right adrenal hematoma. 6. Urinary retention with need for clean intermittent catheterization. 7. History of insulin-dependent diabetes mellitus. 8. Gastroesophageal reflux disease. 9. Chronic obstructive pulmonary disease. 10. Exogenous obesity. PLAN: Therapy evaluations are underway. We will need to see how she does and follow along with you. <ELECTRONICALLY SIGNED> By: Joni Buck MD 06/15/21 1352 [id number] Joni Buck MD /nt
== END 2021-06-13 11:39 | DRG 183 ==
LOC: ER 07:29 → EROBS 09:55 → 4W 09:55
PROVIDERS: Emergency Medicine; Hospitalist; Nurse Practitioner Family; Physician Assistant; Surgery; ADMIT Surgery; ATTEND Surgery
DX: S22.41XA Multiple fractures of ribs, right side, initial encounter for closed fracture (principal); J81.0 Acute pulmonary edema; J96.01 Acute respiratory failure with hypoxia; S32.019A Unspecified fracture of first lumbar vertebra, initial encounter for closed fracture; S32.029A Unspecified fracture of second lumbar vertebra, initial encounter for closed fracture; S32.039A Unspecified fracture of third lumbar vertebra, initial encounter for closed fracture; N39.0 Urinary tract infection, site not specified; S37.812A Contusion of adrenal gland, initial encounter; J98.11 Atelectasis; J93.9 Pneumothorax, unspecified; Z68.41 Body mass index [BMI] 40.0-44.9, adult; R33.9 Retention of urine, unspecified; N28.1 Cyst of kidney, acquired; K21.9 Gastro-esophageal reflux disease without esophagitis; Y99.8 Other external cause status; F32.9 Major depressive disorder, single episode, unspecified; E78.5 Hyperlipidemia, unspecified; J44.9 Chronic obstructive pulmonary disease, unspecified; E11.22 Type 2 diabetes mellitus with diabetic chronic kidney disease; I12.9 Hypertensive chronic kidney disease with stage 1 through stage 4 chronic kidney disease, or unspecified chronic kidney disease; E66.9 Obesity, unspecified; S42.001A Fracture of unspecified part of right clavicle, initial encounter for closed fracture; E87.6 Hypokalemia; N18.30 Chronic kidney disease, stage 3 unspecified; Z90.710 Acquired absence of both cervix and uterus; Z90.49 Acquired absence of other specified parts of digestive tract; Z79.4 Long term (current) use of insulin; Z88.1 Allergy status to other antibiotic agents; Z88.2 Allergy status to sulfonamides; Z88.8 Allergy status to other drugs, medicaments and biological substances; Z87.891 Personal history of nicotine dependence; W18.39XA Other fall on same level, initial encounter; Y93.89 Activity, other specified; Y92.89 Other specified places as the place of occurrence of the external cause; Z20.822 Contact with and (suspected) exposure to COVID-19
CPT/HCPCS: 10045

== ENCOUNTER → 2021-10-24 | Outpatient (CLI) | payer OTHER ==
[~2021-10-24] MED LIST changes: +ARTHRITIS PAIN100 GM TOP; +CEFDINIR300 MG PO; +FLOMAX0.4 MG PO; +GEMFIBROZIL 60600 MG PO; +HUMULIN 70100 UNIT/2 SUBQ; +HUMULIN N100 UNIT/1 SUBQ; +K-DUR 20 MEQ T20 MEQ PO; +KLOR-CON M2020 MEQ PO; +LASIX 20 MG TAB20 MG PO; +LASIX 40 MG TAB40 M1 PO; +LIDOPATCH1 EACH TRANSDERM; -LORAZEPAM 1 MG T1 M1 PO; +LORAZEPAM 1 MG T1 MG PO; +MELOXICAM10 MG PO; +METOPROLOL TART25 MG PO; +MUCINEX SINUS PO; +NORCO5 PO; +NORVASC5 MG PO; +PROAIR HFA8.5 GM INH; +STIMULANT LAXA1 EACH PO; +TRELEGY ELLIPT1 EAC1 INH; +TYLENOL EXTRA500 MG PO; +UNIFINE PENTIP EAC SUBQ
== END ==
LOC: LAB 12:08
PROVIDERS: ATTEND Student in an Organized Health Care Education/Training Program
DX: Z01.812 Encounter for preprocedural laboratory examination (principal); Z20.822 Contact with and (suspected) exposure to COVID-19

== ENCOUNTER → 2021-10-26 | Outpatient (CLI) | payer OTHER ==
[~2021-10-26] VITALS: Ht 165.1 cm; Wt 104.3 kg
--- NOTE | 2021-10-26 15:03 | P ---
[facility] [place] [address] PROCEDURE REPORT Name: KINDRA OMALLEY Room #: REG [facility].#: [id number] Admission: 10/26/21 Attend Phys: Gael Aguero Discharge: Date of : 47 Report #: [id number] THIS REPORT FOR: cc: Jay Schulz MD,Gael Hamilton MD, MD ~ cc: Jay Schulz MD DATE OF SERVICE: 10/26/2021 PROCEDURE PERFORMED: Colonoscopy with biopsies. HISTORY OF PRESENT ILLNESS: The patient is a 76-year-old female with a history of colon polyps, here for routine followup. She reports mild constipation at times as well as right lower quadrant abdominal pain at times. No family history of colon cancer. DESCRIPTION OF PROCEDURE: The risks and benefits of the procedure were explained to the patient, those risks including but not limited to bleeding, perforation, and the risk of sedation. She understood these risks and gave informed consent. Sedation was given using propofol per anesthesia. Next, a digital rectal exam was initially performed, which was normal. Next, using a standard Olympus colonoscope, the scope was placed in the patient's anus and advanced under direct vision to the cecum. The overall prep was good. The cecum and ileocecal valve were normal in appearance. The ascending, transverse, and descending colon were normal. Multiple diverticula were noted in the sigmoid colon. Also noted in the sigmoid colon, 2 polyps, 4-5 mm in size, both removed with cold forceps. The rectal mucosa was normal. On retroflexion, no abnormalities were noted. The scope was then withdrawn and the procedure terminated. The patient tolerated the procedure well. IMPRESSION: 1. Sigmoid diverticulosis. 2. Two small colonic polyps. 3. Otherwise, normal colonoscopy. RECOMMENDATIONS: 1. Await biopsy results. 2. Repeat colonoscopy in 5 years. 3. Recommend a trial of Levsin on a p.r.n. basis for intermittent right lower quadrant abdominal pain. If pain continues, consider imaging. [address] [address] PROCEDURE REPORT Name: KINDRA OMALLEY Room #: REG [facility] Elliott#: [id number] Admission: 10/26/21 Attend Phys: Gael Aguero Discharge: Date of : 47 Report #: [id number] Thank you for allowing me to participate in her care. <ELECTRONICALLY SIGNED> By: Gael Mao MD 10/26/21 1503 [id number] Gael Mao MD /nt
--- NOTE | 2021-10-29 16:06 | PATH ---
[facility] [place] [address] PATHOLOGY RPT PROCEDURE Name: KINDRA SCHMITT Room #: REG Jane Garcia.#: [id number] Admission: 10/26/21 Date of : 47 Discharge: Report #: [id number] Path Case #: [id number] [facility] Accession Number: [id number] . 01 Material submitted: . sigmoid colon - SIGMOID COLON POLYP BIOPSY . 01 Clinical history: . COLONOSCOPY HX OF POLYPS DIVERTICULOSIS, COLON POLYPS . 02 Diagnosis: Colon biopsies, sigmoid colon polyps: - Tubular adenomas. (FREDI:miles; 10/29/2021) [facility] 10/29/2021 1206 Local . 02 Comment: There is no high-grade dysplasia or evidence of malignancy. (FREDI:miles; 10/29/2021) . 02 Electronically signed: . Jonathan Vasquez MD, Pathologist NPI- [id number] . 01 Gross description: . Received in formalin labeled "Kindra Schmitt, sigmoid colon polyps" are multiple suarez-brown soft tissue fragments measuring in aggregate 1.6 x 0.4 x 0.3 cm. The specimen is submitted entirely in A1. ([facility]; 10/27/2021) [facility] 10/29/2021 1205 Local . 02 Pathologist provided ICD-10: D12.5 . 02 CPT . 022534 Specimen Comment: A courtesy copy of this report has been sent to [phone], [phone] Specimen Comment: [phone] Specimen Comment: Report sent to / DR LOYD Performed at: [address] [id number] MD Master Goldberg MD Phone: [phone] Performed at: [address] [address] PATHOLOGY RPT PROCEDURE Name: KINDRA SCHMITT [id number] Admission: 10/26/21 Date of : 47 Discharge: Report #: [id number] Path Case #: [id number] [address] [place], [place] [id number] MD Jonathan Vasquez MD Phone: [phone]
== END | disposition home or self-care (01) ==
LOC: GI 07:59
PROVIDERS: ATTEND Specialist
DX: K59.00 Constipation, unspecified (principal); R10.31 Right lower quadrant pain; D12.5 Benign neoplasm of sigmoid colon; K57.30 Diverticulosis of large intestine without perforation or abscess without bleeding; Z98.890 Other specified postprocedural states; Z86.010 Personal history of colon polyps; Z79.899 Other long term (current) drug therapy; Z88.8 Allergy status to other drugs, medicaments and biological substances; Z88.2 Allergy status to sulfonamides
CPT/HCPCS: 62110; 62900